=== PATIENT | male | born 1985 | race Two or more races ===

== ENCOUNTER 2017-02-23 12:59 | Emergency (ER) | payer SELFPAY ==
[~2017-02-23] VITALS: Ht 188 cm; Wt 93.0 kg
[2017-02-23 13:57] VITALS: BP 134/72
[2017-02-23] MEDS ORDERED: VISCOUS LIDOCAINE 2% 15 ML UDC MM STA (14:26)
[2017-02-23] MEDS ORDERED: LIDOCAINE HCL 2% JELLY 5ML TOP ONE (15:00)
== END 2017-02-23 19:45 | disposition home or self-care (01) ==
LOC: ER 19:44
DX: L02.31 Cutaneous abscess of buttock (principal); Z87.891 Personal history of nicotine dependence
CPT/HCPCS: 99283; Z7610

== ENCOUNTER 2017-03-04 12:09 | Emergency (ER) | payer SELFPAY ==
[~2017-03-04] VITALS: Ht 188 cm; Wt 93.0 kg
[2017-03-04 12:15] VITALS: BP 151/81
== END 2017-03-04 15:20 | disposition home or self-care (01) ==
LOC: ER 13:36
DX: Z48.00 Encounter for change or removal of nonsurgical wound dressing (principal)
CPT/HCPCS: 99281

== ENCOUNTER 2018-01-10 20:37 | Emergency (ER) | payer SELFPAY ==
[~2018-01-10] VITALS: Ht 185.4 cm; Wt 82.0 kg
[2018-01-11] MEDS ORDERED: IBUPROFEN 600MG TABLET PO ONE (04:45)
[2018-01-11 05:00] VITALS: BP 128/72
== END 2018-01-11 05:20 | disposition home or self-care (01) ==
LOC: ER 20:37
DX: S80.02XA Contusion of left knee, initial encounter (principal); X50.1XXA Overexertion from prolonged static or awkward postures, initial encounter; Y93.61 Activity, american tackle football; Y92.89 Other specified places as the place of occurrence of the external cause; Y99.8 Other external cause status
CPT/HCPCS: 73562; 73590; 99284; Z7610

== ENCOUNTER 2018-04-16 09:18 | Emergency (ER) | payer SELFPAY ==
[~2018-04-16] VITALS: Ht 185.4 cm; Wt 91.0 kg
[2018-04-16] MEDS ORDERED: BACITRACIN ZINC OINT UDPKT TOP ONE (09:45)
[2018-04-16] MEDS ORDERED: TETANUS, DIPHTHERIA, PERTUSSIS VAC/PF 0.5ML (>7YR OLD) IM ONE (09:45)
[2018-04-16] MEDS ORDERED: LIDOCAINE HCL/PF 1% 10 MG/ML 5ML VIAL IJ ONE (09:45)
[2018-04-16] MEDS ORDERED: ACETAMINOPHEN 325MG TABLET PO ONE (09:45)
[2018-04-16 10:35] VITALS: BP 122/78
[2018-04-17] MEDS ORDERED: DEXTROSE 50% WATER 50ML SYRINGE IV ONE (09:37)
== END 2018-04-16 10:38 | disposition home or self-care (01) ==
LOC: ER 09:18
DX: L02.31 Cutaneous abscess of buttock (principal)
CPT/HCPCS: 10060; 90471; 90715; 99283; J3490; Z7610